=== PATIENT | male | born 1960 | race Caucasian/White ===

== ENCOUNTER 2020-11-02 19:24 | Emergency (ER) | payer OTHER ==
[~2020-11-02] VITALS: Ht 162.6 cm; Wt 62.6 kg
[2020-11-02] MEDS ORDERED: HYDR1TAB94 PO (23:04)
[2020-11-03] MEDS ORDERED: HYDROCHLOROTHIA25 MG PO (13:04)
[2020-11-03] MEDS ORDERED: Prinivil10 MG PO (13:04)
[2020-11-03] MEDS ORDERED: METO100 PO (13:05)
== END 2020-11-02 23:38 | disposition home or self-care (01) ==
LOC: ER 19:24
DX: S42.291A Other displaced fracture of upper end of right humerus, initial encounter for closed fracture (principal); S00.83XA Contusion of other part of head, initial encounter; W10.9XXA Fall (on) (from) unspecified stairs and steps, initial encounter
CPT/HCPCS: 70450; 72125; 73030; 73080; 96374; 96375; 99284-25; A9270; J1170; J1885

== ENCOUNTER 2020-11-03 11:49 | Day surgery (SDC) | payer OTHER ==
[~2020-11-03] VITALS: Ht 165.1 cm; Wt 62.2 kg
[~2020-11-03 11:49] MED LIST: HYDR1TAB94 PO
[2020-11-03 12:51] LABS: BASOPHILS ABSOLUTE AUTO 0.08 K/mm3 (0.00-0.23); BASOPHILS PERCENT AUTO 1 % (0-2); EOSINOPHILS ABSOLUTE AUTO 0.08 K/mm3 (0.00-0.68); EOSINOPHILS PERCENT AUTO 1 % (0-6); Hematocrit 40.9 % (37.0-53.0); Hemoglobin 13.3 g/dL (13.5-17.5); IMMATURE GRAN ABSOLUTE AUTO 0.04 K/mm3 (0.00-0.10); IMMATURE GRAN PERCENT AUTO 0 % (0-1); LYMPHOCYTES ABSOLUTE AUTO 2.76 K/mm3 (0.84-5.20); LYMPHOCYTES PERCENT AUTO 22 % (21-46); MONOCYTES PERCENT AUTO 8 % (4-13); Mean Corpuscular HGB 34.7 pg (26.0-34.0); Mean Corpuscular HGB Conc 32.5 g/dL (31.5-36.5); Mean Corpuscular Volume 107 fL (80-100); Mean Platelet Volume 12.1 fL (9.1-12.4); NEUTROPHILS ABSOLUTE AUTO 8.86 K/mm3 (1.96-9.15); NEUTROPHILS PERCENT AUTO 69 % (41-73); Platelet Count 189 K/mm3 (150-400); RDW Coefficient Variation 13.2 % (11.7-14.2); RDW Standard Deviation 52.3 fL (35.1-46.3); Red Blood Cell Count 3.83 M/mm3 (4.30-5.90); White Blood Cell Count 12.82 K/mm3 (4.00-11.30)
[2020-11-03] MEDS ORDERED: Prinivil10 MG PO (13:04)
[2020-11-03] MEDS ORDERED: HYDROCHLOROTHIA25 MG PO (13:04)
[2020-11-03] MEDS ORDERED: METO100 PO (13:05)
[2020-11-03 13:14] LABS: Calcium, Blood 9.4 mg/dL (8.5-10.1); Creatinine, Blood 1.47 mg/dL (0.60-1.20); Potassium, Blood 4.3 mmol/L (3.5-5.5)
[2020-11-03 13:48] LABS: Influenza A, PCR Negative (NEGATIVE); Influenza B, PCR Negative (NEGATIVE); Resp Syncytial Virus, PCR Negative (NEGATIVE); SARS-Cov-2 (COVID-19) PCR, MMC Negative (NEGATIVE)
--- NOTE | 2020-11-03 13:54 | NUR ---
Ambulatory in [facility] warming gown applied. Surgical site prepped with 2% Chlorhexidine cloth wipe. History, Chart, Medications and Allergies reviewed before start of procedure.Lungs clear T/O to Auscultation. Patient confirms NPO status and agrees with scheduled surgery. Pre-Op teaching done. Pt verbalizes understanding. Patient States Post-Procedure ride home has been arranged.
--- NOTE | 2020-11-03 17:20 | NUR ---
REGLAN 10MG IV GIVEN. PT RETCHING w/100CC GREENISH/YELLOW EMESIS. COOL CLOTH PLACED TO FOREHEAD. PT NOW RESTING QUIETLY.
--- NOTE | 2020-11-03 18:17 | NUR ---
POST OP: REPORT RECEIVED FROM GUMARO CABLE DISPATCHER. PT TO UNIT AT ABOUT 1755, UPON ASSESSMENT PT IS A/O, VSS. SURGICAL SITE WNL, R ARM IN SLING. PT DENIES PAIN/NAUSEA. ORIENTED TO CALL LIGHT. WILL CTM AND PASS REPORT TO NIKKO RN.
--- NOTE | 2020-11-03 20:31 | NUR ---
BP DR LORENZO NOTIFIED OF PT BP TRENDING HYPO. PT ASYMPTOMATIC. NEW ORDER FOR 500ML BOLUS REC.
--- NOTE | 2020-11-04 04:58 | NUR ---
POD 1 S/P ORIF OF RIGHT SHOULDER. BP HYPO, PT REMAINED ASYMPTOMATIC, 500ML BOLUS GIVEN PER ORDERS, PT DAWOOD WELL. DRESSING CDI. PT REP SENSATION RETURNING THIS AM, REPORTS FULL SENSATION TO HAND, AND INC TINGLING IN ARM. CAP REFILL WNL. PULSE STRONG. ARM IN SLING. TORADOL GIVEN PER PT REQ THIS AM. PT DAWOOD REG PO, NO N/O N/V, IS VOIDING URINE W/O DIFFICULTY. PT UP OOB W/SBA, DAWOOD WELL.
[2020-11-04] MEDS ORDERED: Norco 5-325 Ta1 EACH PO (10:09)
[2020-11-04] MEDS ORDERED: ONDA4ODT MM (10:20)
--- NOTE | 2020-11-04 11:11 | NUR ---
DISCHARGE: PACKET PRINTED AND PT EDUCATED. GIVEN SCRIPT FOR NARCO AND ORDER FOR ZOFRAN FAXED TO [facility]. EXTRA AQUACEL SENT WITH PT. PT LEFT UNIT WITH BROTHER ON FOOT AT ABOUT 1030.
--- NOTE | 2020-11-04 11:14 | NUR ---
SERENE JACOB MADE AWARE OF PT HYPOTENSION AND THAT MORNING BP MEDICATIONS HELD. PT ASYMPTOMATIC. NO NEW ORDERS BEFORE DISCHARGE. PT ENCOURAGED TO CHECK BP BEFORE TAKING MEDICATIONS AT HOME.
--- NOTE | 2020-11-04 12:35 | NUR ---
11/04/20 1235 Marisabel Medrano VERIFICATIONS: EDIT CHART.
== END 2020-11-04 10:38 | disposition home or self-care (01) ==
LOC: ORSCMMR 11:49 → ORD 12:30 → ORSCMMR 12:30 → SURS 17:52 → ORSCMMR 11-04 10:38
PROVIDERS: Anesthesiology; Orthopaedic Surgery
PROC: 0PSC04Z Reposition Right Humeral Head with Internal Fixation Device, Open Approach (ICD-10-PCS; principal; 2020-11-03 13:30)
DX: S42.201A Unspecified fracture of upper end of right humerus, initial encounter for closed fracture (principal); I10 Essential (primary) hypertension; N18.30 Chronic kidney disease, stage 3 unspecified; F17.210 Nicotine dependence, cigarettes, uncomplicated; Z79.899 Other long term (current) drug therapy
CPT/HCPCS: 0241U; 80048; 85025; 93005; 93010; A9270; C1713; J0690; J1100; J1885; J2250; J2370; J2405; J2704; J2710; J2765; J3010; J7040; J7120